=== PATIENT | female | born 1945 | race African-American/Black ===

== ENCOUNTER 2016-07-01 14:35 | Emergency (ER) | payer OTHER ==
[~2016-07-01 14:35] MED LIST: ASAB PO; BACDS PO; HCTZ25B PO; KLOR-CON 1010 MEQ PO; PRAVAC PO; VANCOCIN HCL125 MG PO
[2016-07-01 15:13] LABS: WBC (NOT ORDERED) (RFLEX) 0 (0-5)
[2016-07-01 15:18] LABS: BASOPHILS 0.2 %; BASOPHILS ABSOLUTE 0.01 10/3/uL (0.0-0.16); EOSINOPHILS 2.3 %; EOSINOPHILS ABSOLUTE 0.12 10/3/uL (0.0-0.53); ER CBC TAT 0 Hrs 05 Mins; HEMOGLOBIN 12.8 g/dL (12.0-16.0); IMMATURE GRANULOCYTES 0.4 %; IMMATURE GRANULOCYTES ABSOLUTE 0.02 10/3/uL (0.0-0.11); LYMPHOCYTES 35.9 %; LYMPHOCYTES ABSOLUTE 1.89 10/3/uL (0.67-4.30); MEAN CORPUS HGB CONC 32.8 g/dL (32.0-36.0); MEAN CORPUSCULAR HEMOGLOB 29.8 pg (26.0-34.0); MEAN CORPUSCULAR VOLUME 90.9 fL (80-100); MEAN PLATELET VOLUME 10.3 fL (9.2-13.0); MONOCYTES 9.5 %; NEUTROPHILS 51.7 %; NEUTROPHILS ABSOLUTE 2.72 10/3/uL (2.02-8.40); PLATELET COUNT 226 10/3/uL (150-400); RBC DISTRIBUTION WIDTH 13.6 % (12.0-16.0); RED CELL COUNT 4.29 10/6/uL (4.0-5.6); WHITE BLOOD CELLS 5.3 10/3/uL (4.5-10.5)
[2016-07-01 15:19] LABS: MANUAL DIFF NO %
[2016-07-01 15:24] LABS: ASCORBIC ACID (UR NOT ORDER) NEG (NEG); BILIRUBIN, URINE NEGATIVE (NEG); ER URINALYSIS TAT 0 Hrs 12 Mins; KETONE, URINE NEGATIVE (NEG); LEUKOCYTE ESTERASE(NOT OR NEG (NEG); NITRITE (URINE) NEG (NEG)
[2016-07-01 15:37] LABS: BUN (BLOOD UREA NITROGEN) 13 MG/DL (6-23); CALCIUM, SERUM 9.2 MG/DL (8.5-10.4); CHLORIDE, SERUM 107 MMOL/L (96-112); CO2 (CARBON DIOXIDE) 29 MMOL/L (24-34); CREATININE 1.01 MG/DL (0.55-1.02); GFR AFRICAN AMERICAN 65 ML/MIN (>=60); GFR NON AFRICAN AMERICAN 56 ML/MIN (>=60); GLUCOSE, SERUM 132 MG/DL (60-99); SGOT(AST) 19 U/L (5-40); SGPT(ALT) 21 U/L (5-65); SODIUM, SERUM 142 MMOL/L (135-148); TOTAL BILIRUBIN 0.4 MG/DL (0-1.2)
[2016-07-01 15:40] LABS: A/G RATIO 1.1 (0.7-1.9); ALBUMIN 3.8 G/DL (3.5-5.0); ALKALINE PHOSPHATASE 73 U/L (45-117); GLOBULIN 3.4 G/DL (2.5-4.1); TOTAL PROTEIN 7.2 G/DL (6.0-8.5)
== END 2016-07-01 17:03 | disposition home or self-care (01) ==
LOC: ER 14:35
PROVIDERS: Emergency Medicine
DX: R10.9 Unspecified abdominal pain (principal); I10 Essential (primary) hypertension; Z88.0 Allergy status to penicillin; Z88.8 Allergy status to other drugs, medicaments and biological substances; Z79.899 Other long term (current) drug therapy; Z79.82 Long term (current) use of aspirin
CPT/HCPCS: 74176; 80053; 81001; 83690; 85025; 99284

== ENCOUNTER 2016-07-03 06:20 | Emergency (ER) | payer MEDICARE, OTHER ==
[2016-07-03 06:07] LABS: ASCORBIC ACID (UR NOT ORDER) NEG (NEG); BILIRUBIN, URINE NEGATIVE (NEG); ER URINALYSIS TAT 0 Hrs 11 Mins; KETONE, URINE NEGATIVE (NEG); LEUKOCYTE ESTERASE(NOT OR NEG (NEG); NITRITE (URINE) NEG (NEG); WBC (NOT ORDERED) (RFLEX) 1 (0-5)
== END 2016-07-03 06:55 | disposition home or self-care (01) ==
LOC: ER 06:20
PROVIDERS: Specialist
DX: M54.5 Low back pain (principal); I10 Essential (primary) hypertension; E11.9 Type 2 diabetes mellitus without complications; Z85.038 Personal history of other malignant neoplasm of large intestine; Z88.0 Allergy status to penicillin; Z88.6 Allergy status to analgesic agent; Z79.82 Long term (current) use of aspirin; Z79.899 Other long term (current) drug therapy
CPT/HCPCS: 81001; 96372; 99283; J2270